=== PATIENT | male | born 2000 | race African-American/Black ===

== ENCOUNTER 2022-04-30 12:07 | Emergency (ER) | payer OTHER, SELFPAY ==
[~2022-04-30 12:07] MED LIST: Iopamidol-370 76% 500 ML 1 ML ONE
[2022-04-30 13:50] LABS: #Eosinphils 0.1 thou/uL (0.0-0.7); #Lymphocytes 1.2 thou/uL (1.20-3.40); #Monocytes 0.5 thou/uL (0.11-0.59); #Neutrophils 3.9 thou/uL (1.40-6.50); %Basophils 0.1 % (0.0-1.0); %Eosinophils 2.1 % (0.0-10.0); %Lymphocytes 21.4 % (28.0-48.0); %Neutrophils 68.4 % (31.0-61.0); Hemoglobin 13.2 g/dL (14.0-18.0); Mean Corpuscular HGB CONC 31.4 g/dL (32.0-36.0); Mean Platelet Volume 9.2 fL (7.4-10.4); Platelet Count 259 10x3/uL (130-400); RBC Distribution Width 14.5 % (11.5-14.5); Red Blood Cell (RBC) Count 4.91 mill/uL (4.00-5.20); White Blood Cell (WBC) Count 5.6 10x3/uL (4.8-10.8)
[2022-04-30 14:08] LABS: ALT (SGPT) 17 U/L (8-55); AST (SGOT) 27 U/L (5-34); Albumin 4.7 g/dL (3.5-5.0); Alkaline Phosphatase 69 U/L (50-130); Anion Gap 13 mmol/L (10-20); BUN (Urea Nitrogen) 12 mg/dL (8.9-20.6); Bilirubin, Total 0.9 mg/dL (0.2-1.2); Calc. Creatinine Clearance 0 mL/min (70-130); Calcium 9.9 mg/dL (7.8-10.44); Carbon Dioxide 25 mmol/L (22-29); Chloride 105 mmol/L (98-107); Estimated GFR 100; Globulin 3.9 g/dL (2.4-3.5); Glucose 90 mg/dL (70-105); Protein, Total 8.6 g/dL (6.0-8.3); Sodium 139 mmol/L (136-145)
== END 2022-04-30 15:17 | disposition home or self-care (01) ==
LOC: ERS 12:07
DX: R10.30 Lower abdominal pain, unspecified (principal)
CPT/HCPCS: 36415; 74177; 80053; 85025; Q9967